=== PATIENT | female | born 1955 | race Two or more races ===

== ENCOUNTER 2023-08-30 08:45 | Inpatient (IN) | payer OTHER ==
[~2023-08-30] VITALS: Ht 170.2 cm; Wt 102.1 kg
[2023-08-30 10:28] LABS: PH,URINE 5.5 (5.0-8.0); URINE APPEARANCE Clear; URINE BILIRRUBIN Negative (NEGATIVE); URINE BLOOD Negative; URINE COLOR Yellow; URINE GLUCOSE Negative (NEGATIVE); URINE LEUKOCYTE Small; URINE NITRATE Negative; URINE PROTEIN Negative (NEGATIVE); URINE UROBILINOGEN 0.2 E.U./dl
[2023-08-30 10:31] LABS: HEMATOCRIT 41.3 % (36.0-45.00); HEMOGLOBIN 13.7 g/dL (12.0-15.00); MEAN CELL VOLUME 81.3 fL (80.00-100.00); MEAN CORPUSCULAR HGB CONC 33.2 g/dl (32.0-36.0); PLATELET COUNT 300 K/uL (150-450); RED BLOOD COUNT 5.08 M/uL (4.00-6.00); RED CELL DISTRIBUTION WIDTH 14.6 % (11.5-14.5)
[2023-08-30 10:33] LABS: URINE BACTERIA 449.7 uL (0.0-1933); URINE EPITHELIAL CELLS 15.7 uL (0.0-38.8); URINE WBC 52.5 uL (0.0-23.2)
[2023-08-30 10:58] LABS: INR 1.04; PARTIAL THROMBOPLASTIN TIME 27.3 SECONDS (22.0-34.0); PROTHROMBIN TIME 10.9 SECONDS (9.0-11.5)
[2023-08-30 11:03] LABS: ALBUMIN 3.6 gm/dL (3.4-5.0); BILIRUBIN TOTAL 0.55 mg/dL (0.3-1.2); CALCIUM 9.2 mg/dL (8.5-10.1); CREATININE SERUM 0.88 mg/dL (0.55-1.02); GFR 64.29; GLOBULINA 3.7 G/DL (2.4-3.5); POTASSIUM 4.15 mEq/L (3.5-5.1); TOTAL PROTEIN 7.3 gm/dL (6.4-8.2)
[2023-09-05] MEDS ORDERED: TRANEXAMIC ACID 100MG/1ML (1000MG) AMPUL IV ONE (12:19)
[2023-09-05] MEDS ORDERED: CEFAZOLIN SODIUM 1,000 MG VIAL ONE ×2 (12:19→17:34)
[2023-09-05] MEDS ORDERED: OxyCODONE HCL 5 MG TABLET (ROXICODONE) PO PRN (15:15)
[2023-09-05] MEDS ORDERED: MORPHINE SULFATE 4 MG/ML CARTRIDGE IV PRN (15:15)
[2023-09-05] MEDS ORDERED: SODIUM CHLORIDE 0.45 % 1,000 ML IV SCH (15:15)
[2023-09-05] MEDS ORDERED: ONDANSETRON HCL 2 MG/ML VIAL IV PRN (15:15)
[2023-09-05] MEDS ORDERED: SUGAMMADEX SODIUM 200 MG/2 ML VIAL IV ONE (15:22)
[2023-09-05] MEDS ORDERED: ATORVASTATIN CA10 MG (15:52)
[2023-09-05] MEDS ORDERED: BACLOFEN10 MG (15:52)
[2023-09-05] MEDS ORDERED: LOSARTAN POTASS25 MG (15:52)
[2023-09-05] MEDS ORDERED: AMLODIPINE BESYL5 MG (15:52)
[2023-09-05] MEDS ORDERED: ONDANSETRON HCL 2 MG/ML VIAL ONE (15:55)
[2023-09-05] MEDS ORDERED: GABAPENTIN 300 MG CAPSULE PO SCH (17:00)
[2023-09-05] MEDS ORDERED: CEFAZOLIN SODIUM 1,000 MG VIAL IV SCH (17:00)
[2023-09-05] MEDS ORDERED: ACETAMINOPHEN 500 MG GEL..CAP PO SCH (18:00)
[2023-09-05] MEDS ORDERED: hydrALAZINE HCL 20 MG VIAL IV PRN (19:15)
[2023-09-06 05:56] LABS: HEMATOCRIT 35.6 % (36.0-45.00); HEMOGLOBIN 11.8 g/dL (12.0-15.00); MEAN CELL VOLUME 82.8 fL (80.00-100.00); MEAN CORPUSCULAR HEMOGLOBIN 27.5 pg (27.00-32.0); MEAN CORPUSCULAR HGB CONC 33.3 g/dl (32.0-36.0); PLATELET COUNT 233 K/uL (150-450); RED CELL DISTRIBUTION WIDTH 14.5 % (11.5-14.5)
[2023-09-06] MEDS ORDERED: CEFADROXIL500 MG PO (08:00)
[2023-09-06] MEDS ORDERED: ELIQUIS2.5 MG PO (08:00)
[2023-09-06] MEDS ORDERED: PERCOCET 5-3251 EACH PO (08:00)
[2023-09-06] MEDS ORDERED: SENNOSIDES 1 TAB TABLET PO SCH (09:00)
[2023-09-06] MEDS ORDERED: Cyanocobalamin/Mecobalamin 1 TAB.SL SL SCH (12:59)
[2023-09-06] MEDS ORDERED: VITAMIN B COMPLEX 1 EACH PO SCH (12:59)
[2023-09-06] MEDS ORDERED: SOD FERRIC GLUC COMPLX/SUCROSE 62.5 MG/5 ML AMPUL IV SCH (13:00)
[2023-09-07 05:56] LABS: HEMATOCRIT 34.9 % (36.0-45.00); HEMOGLOBIN 11.8 g/dL (12.0-15.00); MEAN CELL VOLUME 82.8 fL (80.00-100.00); MEAN CORPUSCULAR HGB CONC 33.8 g/dl (32.0-36.0); PLATELET COUNT 202 K/uL (150-450); RED BLOOD COUNT 4.21 M/uL (4.00-6.00); RED CELL DISTRIBUTION WIDTH 14.3 % (11.5-14.5)
[2023-09-07] MEDS ORDERED: IRON FUM,PS/FOLIC ACID/VITC/B3 1 CAP CAPSULE PO SCH (09:00)
== END 2023-09-07 21:13 | DRG 470 ==
LOC: O/R 09-05 06:39 → SURG 09-05 08:45
PROVIDERS: ADMIT Orthopaedic Surgery; ATTEND Orthopaedic Surgery
PROC: 0SRC0J9 Replacement of Right Knee Joint with Synthetic Substitute, Cemented, Open Approach (ICD-10-PCS; principal; 2023-09-05 09:30)
DX: M17.11 Unilateral primary osteoarthritis, right knee (principal); D62 Acute posthemorrhagic anemia; M22.11 Recurrent subluxation of patella, right knee; E66.01 Morbid (severe) obesity due to excess calories